=== PATIENT | female | born 1935 ===

== ENCOUNTER → 2021-07-19 09:38 | Outpatient (CLI) | payer OTHER | END | disposition home or self-care (01) | LOC: LAB 09:38 → EDBD 09:38 | PROVIDERS: ATTEND Orthopaedic Surgery | DX: M85.88 Other specified disorders of bone density and structure, other site (principal); E55.9 Vitamin D deficiency, unspecified; E56.1 Deficiency of vitamin K ==

== ENCOUNTER 2021-07-19 13:27 | Outpatient (CLI) | payer OTHER | END 2021-07-19 13:32 | disposition home or self-care (01) | LOC: NUCLEAR 13:27 | PROVIDERS: ATTEND Orthopaedic Surgery | DX: M81.0 Age-related osteoporosis without current pathological fracture (principal) ==